=== PATIENT | female | born 1980 | race Caucasian/White ===

== ENCOUNTER 2024-10-08 21:29 | Emergency (ER) | payer OTHER, SELFPAY ==
[2024-10-08 21:46] VITALS: BP 156/79; PULSE 105; RESP 18; TEMP 36.8; O2SAT 92; BMI 54.8
[2024-10-08 23:37] VITALS: PULSE 104; O2SAT 91
[2024-10-08 23:39] VITALS: BP 167/90; PULSE 107; O2SAT 90
[2024-10-08 23:40] VITALS: PULSE 110; O2SAT 91
[2024-10-09 00:01] VITALS: BP 151/75
[2024-10-09 00:31] VITALS: BP 139/63
[2024-10-09 00:41] LABS: Add Manual Diff / Slide Review NO; Basophils Absolute Auto 100 /uL (0-100); Basophils Percent Auto 0.6 % (0-2); Eosinophils Absolute Auto 100 /uL (0-450); Eosinophils Percent Auto 1.3 % (2-4); Hematocrit 55.7 % (36-46); Hemoglobin 17.3 g/dL (12.0-16.0); Lymphocytes Absolute Auto 1200 /uL (1100-4500); Mean Corpuscular HGB Conc 31.1 % (30-36); Mean Corpuscular Volume 80.4 fL (80-100); Monocytes Absolute Auto 500 /uL (0-900); Neutrophils Absolute Auto 8500 /uL (1500-7000); Neutrophils Percent Auto 81.1 % (50-75); Platelet Count 246 X10^3/uL (150-400); Red Blood Cell Count 6.93 X10^6/uL (4.0-5.2); Red Cell Distribution Width 21.5 % (11.6-14.8); White Blood Cell Count 10.4 X10^3/uL (4.5-11.0)
--- NOTE | 2024-10-09 00:41 | ED.WOUNDLAC ---
HPI - Wound/Laceration General Chief Complaint: Wound/Laceration Stated Complaint: Poss Infected wound on Lt Foot Time Seen by Provider: 10/09/24 00:04 Source: patient Mode of arrival: Wheelchair History of Present Illness HPI narrative: 44-year-old female with history of diabetes status post amputation of all left foot toes, recently moved back from [place] to home [facility], not yet re-established with the primary care provider, had [facility] care in [place] who signed off care, seemed to have concerns about the way the stump looked. Now with recent days increasing redness to the stump incision, with some drainage. No fevers or chills. Some redness to the adjacent foot area. Related Data Previous Rx's ?Medication ?Instructions ?Recorded VIT#96/FERROUS FUM/FA 1 tab PO QDAY ##90 08/14/12 ( Vitamin) clindamycin HCl 300 mg capsule 300 mg PO Q6H Dental infection 10 10/09/24 days #40 caps levofloxacin 750 mg tablet 750 mg PO Q24H #10 tabs 10/09/24 Allergies Allergy/AdvReac Type Severity Reaction Status Date / Time Penicillins Allergy Intermediate Hives Verified 10/08/24 21:47 prednisone Allergy Intermediate Dizziness Verified 10/08/24 21:47 metformin AdvReac Intermediate Verified 10/08/24 21:48 Patient History Social History Smoking Status: Current every day smoker Smoking Status: Current every day smoker tobacco type: cigarettes Exam Narrative Exam Narrative: GENERAL: Well-developed patient, in mild distress. HEAD: Atraumatic. Normocephalic. EYES: Pupils equal round and reactive. Extraocular motions intact. No scleral icterus. No injection or drainage. ENT: Nose without bleeding, purulent drainage. Throat without erythema, tonsillar hypertrophy or exudate. Airway patent. NECK: Trachea midline. Non tender CARDIOVASCULAR: Regular rate and rhythm without murmurs, gallops, or rubs. RESPIRATORY: Clear to auscultation. Breath sounds equal bilaterally. No wheezes, rales, or rhonchi. GASTROINTESTINAL: Abdomen soft, non-tender, nondistended. EXTREMITIES: Lateral foot status post amputation of all 5 toes, left foot stump wound with slight distal opening and white yellow fluid. No crepitance. Some redness and swelling to the distal remainder foot to a proximally ankle level. No lymphangitic streaking. BACK: Nontender without deformity or crepitance. No flank tenderness. NEURO: AOx3. Motor functions grossly nonfocal. SKIN: No rash or erythema of visible areas Initial Vital Signs Initial Vital Signs: Vital Signs Temperature 98.2 F 10/08/24 21:46 Pulse Rate 105 H 10/08/24 21:46 Respiratory Rate 18 10/08/24 21:46 Blood Pressure 156/79 H 10/08/24 21:46 Pulse Oximetry 92 10/08/24 21:46 Oxygen Delivery Method Room Air 10/08/24 21:46 Course Orders Ordered: ED Orders 10/08/24 22:00 Consult to [facility] [place] - [employer] Stat 10/09/24 00:01 CBC Auto Diff [Complete Blood Count AUTO DIFF] Stat CMP [Comprehensive Metabolic Panel] Stat CRP [C-Reactive Protein Quant] Stat ESR [Erythrocyte Sedimentation Rate] Stat Hemoglobin A1C% w Est Avg Glu Stat Lactate (Lactic Acid) Stat 10/09/24 00:09 Wound Culture and Gram Stain Stat 10/09/24 00:56 XR foot LT min 3V Stat 10/09/24 01:10 CT LE LT w con Stat 10/09/24 01:35 Blood Culture Stat Discontinued Medications Vancomycin HCl 2,000 mg/ (Sodium Chloride) 500 mls @ 250 mls/hr IV NOW ONE Stop: 10/09/24 00:56 Last Admin: 10/09/24 01:42 Dose: 250 mls/hr Documented By: EDUARDA Piperacillin Sod/Tazobactam (Sod 4.5 gm/ Sodium Chloride) 100 mls @ 200 mls/hr IV NOW ONE Stop: 10/09/24 03:02 Levofloxacin (Levofloxacin 250 Mg Tablet) 750 mg PO NOW ONE Stop: 10/09/24 04:42 Last Admin: 10/09/24 04:58 Dose: 750 mg Documented By: JOVAN Vital Signs Vital signs: Vital Signs - 8 hr 10/08/24 23:37 10/08/24 23:39 10/08/24 23:39 Pulse Rate 104 H 107 H Blood Pressure 167/90 H Pulse Oximetry 91 90 L 10/08/24 23:40 10/09/24 00:01 10/09/24 00:31 Pulse Rate 110 H Blood Pressure 151/75 H 139/63 Pulse Oximetry 91 10/09/24 05:04 10/09/24 05:04 Pulse Rate 94 H Blood Pressure 127/61 Pulse Oximetry 85 L MDM - Wound/Laceration Lab Data Attestation: I reviewed the patient's lab results. Lab results narrative: White blood cell count 98048, hemoglobin 17.3, platelets adequate. Glucose 138. BUN 8 with creatinine 0.44. Serum CO2 34. Electrolytes unremarkable. Liver functions normal. Lactate 1.4 normal. 10/09/24 00:01 10/09/24 00:01 Labs: Lab Results 10/09/24 Range/Units 00:01 WBC 10.4 (4.5-11.0) X10^3/uL RBC 6.93 H (4.0-5.2) X10^6/uL Hgb 17.3 H (12.0-16.0) g/dL Hct 55.7 H (36-46) % MCV 80.4 (80-100) fL MCH 25.0 L (26-34) PG MCHC 31.1 (30-36) % RDW 21.5 H (11.6-14.8) % Plt Count 246 (150-400) X10^3/uL Neut % (Auto) 81.1 H (50-75) % Lymph % (Auto) 12.0 L (25-40) % [place] % (Auto) 5.0 (3-14) % Eos % (Auto) 1.3 L (2-4) % Baso % (Auto) 0.6 (0-2) % Neut # (Auto) 8500 H (0397-3479) /uL Lymph # (Auto) 1200 (6084-7231) /uL [place] # (Auto) 500 (0-900) /uL Eos # (Auto) 100 (0-450) /uL Baso # (Auto) 100 (0-100) /uL Platelet Estimate Adequate on smear RBC Morphology See below Anisocytosis 1+ H Microcytosis 1+ H ESR 2 (0-20) MM/HR Sodium 138 (137-145) mmol/L Potassium 4.1 (3.4-5.1) mmol/L Chloride 98 (98-107) mmol/L Carbon Dioxide 34 H (22-32) mmol/L BUN 8 (7-17) mg/dL Creatinine 0.44 L (0.52-1.04) mg/dL Estimated GFR > 60 (>60) mL/min BUN/Creatinine Ratio 18.2 (6-22) Glucose 138 H (70-99) mg/dL Hemoglobin A1c 7.5 H (4.0-6.0) % Lactate 1.4 (0.7-2.1) mmol/L Calcium 9.0 (8.4-10.2) mg/dL Total Bilirubin 0.8 (0.2-1.3) mg/dL AST 24 (14-36) IU/L ALT 12 (<35) IU/L Alkaline Phosphatase 109 (38-126) U/L C-Reactive Protein 0.9 (<1.0) mg/dL Total Protein 8.1 (6.3-8.2) g/dL Albumin 4.3 (3.5-5.0) g/dL Globulin 3.8 (1.7-4.1) g/dL Albumin/Globulin Ratio 1.1 (1.0-2.8) Imaging Data X-ray left foot/stump: Radiologist's Impression: Close Foot X-Ray (Signed) Neha Porras - 10/09/24 [place] [address] XRay Report Signed Patient: Norma Taveras MR#: [id number] : 1980 Acct:[id number] Age/Sex: 44 / F Date of Service: 10/09/24 Loc: ED Accession Number: [id number] Procedure: XR foot LT min 3V Ordering Provider: Ziggy Ireland MD PROCEDURE: XR FOOT LT MIN 3V INDICATIONS: infected post amputation foot TECHNIQUE: 1 views of the foot were acquired. COMPARISON: None. FINDINGS: Bones: Amputation of digits through 5 distal to the midportion the metatarsals. No erosions. Soft tissues: No tibiotalar joint effusion. Achilles tendon appears normal. Diffuse soft tissue edema in areas ulceration. IMPRESSION: Postsurgical changes. No visualized osteomyelitis. Dictated by: Neha Porras M.D. on 10/09/2024 at 1:26 Approved by: Neha Porras M.D. on 10/09/2024 at 1:27 MDM Narrative Medical decision making narrative: 44-year-old female with history of diabetes, status post prior left toes amputation, recently moved from [place] to [facility], has draining wound from stump site last couple of days, with redness to the foot. Concern for infection. Afebrile, sirs screen negative. Labs sent. Screening x-ray left foot/stump pending. Wound culture from scant drainage sent by nursing. IV vancomycin, IV Zosyn. X-ray shows postoperative changes left foot, no obvious osteomyelitis. See radiology report. Lab data: White blood cell count 64146, hemoglobin 17.3, platelets adequate. Glucose 138. BUN 8 with creatinine 0.44. Serum CO2 34. Electrolytes unremarkable. Liver functions normal. Lactate 1.4 normal. ESR2. CRP <0.9 CT left lower extremity with contrast. Impressions: ?Postsurgical findings of amputations of the bases of the metatarsals with extensive subcutaneous inflammatory changes throughout and ankle and foot compatible with cellulitis. No fracture or focal drainable collection is seen.? No mention of osteomyelitis changes. See radiology report. No drainable fluid on CT imaging, no gross osteomyelitis changes. Admit for cellulitis and draining wound, history of diabetes. IV vancomycin and Zosyn given. Will contact hospitalist. 0445, awaiting call back from hospitalist, but now patient sedating so she wants to be discharged home, despite urging her to stay for inpatient IV antibiotics. She is preferring to leave against medical advice. Expresses interested in continued oral antibiotic therapy and wound care clinic in follow up. Had IV vancomycin. History of penicillin allergy noted. Zosyn dose canceled. We will give oral Levaquin. Patient now does not want to be admitted, we would like a trial of oral antibiotics and follow up with wound care clinic. She will leave against medical advice. We will send prescription for oral clindamycin and oral Levaquin. Discharged home with family. Advised to follow up with wound care clinic. Given phone number information to establish with local primary care provider. Return precautions discussed. She left the emergency department against medical advice. Discharge Plan Departure Patient Disposition: Left Against Medical Advice Clinical Impression: Cellulitis of left foot, History of diabetes mellitus, Morbid obesity, Left against medical advice Activity Restrictions/Additional Instructions: History of diabetes, prior amputations of left foot toes, now with draining wound, having moved from home state of [place] back to [facility], yet to establish with local primary care provider. X-ray without obvious bony infection. Labs sent. CT foot without fluid collection drainable. IV vancomycin antibiotic given. Wound culture was sent prior to antibiotics. Advised to be admitted for further IV antibiotics. History of penicillin allergy. Additional antibiotic oral Levaquin/levofloxacin given. Further antibiotics as an outpatient though not ideal given you are leaving against medical advice, as medical advice was to be admitted for IV antibiotic therapy. We will give prescriptions for oral antibiotics for you to try. Prescription for oral clindamycin antibiotic, and oral levofloxacin antibiotic sent to your pharmacy. Contact information provided for local wound care clinic. Call [phone]. Also consider calling for to establish with local care provider, at number [phone]. Be aware leaving the department against medical advice we will result in lack of IV antibiotics, which could lead to worsening wound infection, spread of infection, increased risk of further amputation, development of sepsis syndrome, and theoretically even . You stated that you wanted to go home to take care of things, and seemed to prefer trial of oral antibiotics and wound care clinic. Call wound care clinic later today. Be aware also you can return to this emergency department for any change worsening symptoms or any concerns at any time. Prescriptions: New levofloxacin 750 mg tablet 750 mg PO Q24H Qty: 10 0RF clindamycin HCl 300 mg capsule 300 mg PO Q6H 10 Days Qty: 40 0RF No Action VIT#96/FERROUS FUM/FA ( Vitamin) 1 tab PO QDAY Qty: 90 0RF Stand Alone Forms: Patient Portal/API, Against Med. Advice (Burundian)
[2024-10-09 00:42] LABS: Alanine Aminotransferase 12 IU/L (<35); Albumin 4.3 g/dL (3.5-5.0); Albumin Globulin Ratio 1.1 (1.0-2.8); Alkaline Phosphatase 109 U/L (38-126); Aspartate Aminotransferase 24 IU/L (14-36); BUN Creatinine Ratio 18.2 (6-22); Bilirubin Total 0.8 mg/dL (0.2-1.3); Blood Urea Nitrogen 8 mg/dL (7-17); Carbon Dioxide 34 mmol/L (22-32); Chloride 98 mmol/L (98-107); Estimated Glomerular Filt Rate > 60 mL/min (>60); Globulin 3.8 g/dL (1.7-4.1); Glucose 138 mg/dL (70-99); HEMOLYSIS 30 (0-50); Lactate (Lactic Acid) 1.4 mmol/L (0.7-2.1); Potassium 4.1 mmol/L (3.4-5.1); Sodium 138 mmol/L (137-145); Total Protein 8.1 g/dL (6.3-8.2)
--- NOTE | 2024-10-09 00:56 | DI.RAD.S_ITS ---
PROCEDURE: XR FOOT LT MIN 3V INDICATIONS: infected post amputation foot TECHNIQUE: 1 views of the foot were acquired. COMPARISON: None. FINDINGS: Bones: Amputation of digits through 5 distal to the midportion the metatarsals. No erosions. Soft tissues: No tibiotalar joint effusion. Achilles tendon appears normal. Diffuse soft tissue edema in areas ulceration. IMPRESSION: Postsurgical changes. No visualized osteomyelitis. Dictated by: Neha Porras M.D. on 10/09/2024 at 1:26 Approved by: Neha Porras M.D. on 10/09/2024 at 1:27
--- NOTE | 2024-10-09 01:10 | DI.CT.S_ITS ---
PROCEDURE: CT LE LT W CON INDICATIONS: left foot, stump infected, eval for drainable abscess TECHNIQUE: After the administration of intravenous contrast, 3 mm axial sections acquired of the left ankle/foot, with coronal and sagittal reformats. For radiation dose reduction, the following was used: automated exposure control, adjustment of mA and/or kV according to patient size. COMPARISON: [facility], CR, XR FOOT LT MIN 3V, 10/09/2024, 1:03. FINDINGS: Image quality: Excellent. Bones: Postsurgical changes are seen from transmetatarsal amputation of the forefoot. No acute osseous erosion is seen. There is disuse osteopenia. Soft tissues: Prominent subcutaneous edema is seen throughout the distal aspect of the foot adjacent to the surgical site and extending into the ankle and lower leg. No soft tissue gas. No peripherally enhancing fluid collection is seen. The tendons, ligaments, and articular cartilages are not well evaluated with CT. The visualized musculature demonstrates normal in overall bulk. IMPRESSION: 1. Postsurgical changes from prior transmetatarsal amputation of the forefoot. 2. Subcutaneous edema is seen at the surgical site extending into the ankle and included lower leg, suspicious for cellulitis in the setting of presumed infection. No drainable abscess. No soft tissue gas. No signs of fasciitis or osteomyelitis. There is no significant discrepancy when compared to the overnight preliminary report. Approved by: Gabriel Thomas M.D. on 10/09/2024 at 7:58
[2024-10-09 01:11] LABS: Anisocytosis 1+; Microcytosis 1+; Platelet Estimate Adequate on smear
[2024-10-09 01:32] LABS: Erythrocyte Sedimentation Rate 2 MM/HR (0-20)
[2024-10-09] MEDS: VANCOMYCIN 2,000 MG in SODIUM CHLORIDE 0.9% 500 ML 250 MG IV (01:42)
[2024-10-09 02:15] LABS: C-Reactive Protein Quant 0.9 mg/dL (<1.0)
[2024-10-09 04:39] LABS: Hemoglobin A1C% w Est Avg Glu 7.5 % (4.0-6.0)
[2024-10-09] MEDS: levoFLOXacin 250 MG TABLET 750 MG PO (04:58)
[2024-10-09 05:04] VITALS: BP 127/61; PULSE 94; O2SAT 85
--- NOTE | 2024-10-20 10:50 | PC.NURSE ---
late entry per RN 10-09 0142 dose of vancomycin was completed at 0400.
== END 2024-10-09 05:20 | disposition left against medical advice (07) ==
PROVIDERS: Emergency Provider Emergency Medicine; Family Provider Obstetrics & Gynecology
DX: L03.116 Cellulitis of left lower limb (principal); E11.9 Type 2 diabetes mellitus without complications; E66.01 Morbid (severe) obesity due to excess calories; B95.61 Methicillin susceptible Staphylococcus aureus infection as the cause of diseases classified elsewhere; F17.210 Nicotine dependence, cigarettes, uncomplicated; Z68.43 Body mass index [BMI] 50.0-59.9, adult; Z89.422 Acquired absence of other left toe(s); Z89.412 Acquired absence of left great toe; Z88.0 Allergy status to penicillin
CPT/HCPCS: 36415; 73630; 73701; 80053; 83036; 83605; 85025; 85651; 86140; 87040; 87070; 87077; 87147; 87186; 87205; 96365; 99284; Q9967

== ENCOUNTER → 2024-10-13 10:03 | Outpatient (CLI) | payer OTHER, SELFPAY | PROVIDERS: Family Provider Obstetrics & Gynecology; Referring Provider Emergency Medicine; Visit Provider Surgery | DX: E11.621 Type 2 diabetes mellitus with foot ulcer (principal); E11.42 Type 2 diabetes mellitus with diabetic polyneuropathy; L97.522 Non-pressure chronic ulcer of other part of left foot with fat layer exposed; I73.9 Peripheral vascular disease, unspecified; E66.9 Obesity, unspecified; Z68.43 Body mass index [BMI] 50.0-59.9, adult; E78.00 Pure hypercholesterolemia, unspecified; F41.1 Generalized anxiety disorder; M79.7 Fibromyalgia | CPT/HCPCS: 11042; 99203; 99214 ==

== ENCOUNTER → 2024-10-20 11:23 | Outpatient (CLI) | payer OTHER, SELFPAY | PROVIDERS: Family Provider Obstetrics & Gynecology; Visit Provider Surgery | DX: E11.621 Type 2 diabetes mellitus with foot ulcer (principal); E11.42 Type 2 diabetes mellitus with diabetic polyneuropathy; L97.522 Non-pressure chronic ulcer of other part of left foot with fat layer exposed; I73.9 Peripheral vascular disease, unspecified; Z79.01 Long term (current) use of anticoagulants | CPT/HCPCS: 11042 ==

== ENCOUNTER → 2024-10-28 10:35 | Outpatient (CLI) | payer OTHER, SELFPAY | PROVIDERS: Family Provider Obstetrics & Gynecology; Visit Provider Nurse Practitioner Family | DX: E11.621 Type 2 diabetes mellitus with foot ulcer (principal); E11.42 Type 2 diabetes mellitus with diabetic polyneuropathy; L97.522 Non-pressure chronic ulcer of other part of left foot with fat layer exposed; I73.9 Peripheral vascular disease, unspecified; R60.0 Localized edema; Z79.01 Long term (current) use of anticoagulants; E66.9 Obesity, unspecified; Z68.43 Body mass index [BMI] 50.0-59.9, adult | CPT/HCPCS: 11042; 99213 ==

== ENCOUNTER → 2025-01-08 11:15 | Outpatient (CLI) | payer OTHER, SELFPAY | LOC: WC 11:16 | PROVIDERS: Family Provider Obstetrics & Gynecology; Visit Provider Physician Assistant | DX: E11.621 Type 2 diabetes mellitus with foot ulcer (principal); L97.522 Non-pressure chronic ulcer of other part of left foot with fat layer exposed; E11.42 Type 2 diabetes mellitus with diabetic polyneuropathy; I73.9 Peripheral vascular disease, unspecified | CPT/HCPCS: 11042; 99213; 99214 ==

== ENCOUNTER → 2025-01-18 12:09 | Outpatient (CLI) | payer OTHER, SELFPAY | PROVIDERS: Family Provider Obstetrics & Gynecology; PCP Nurse Practitioner Family; Referring Provider Emergency Medicine; Visit Provider Surgery | DX: E11.621 Type 2 diabetes mellitus with foot ulcer (principal); L97.522 Non-pressure chronic ulcer of other part of left foot with fat layer exposed; I73.9 Peripheral vascular disease, unspecified; E11.42 Type 2 diabetes mellitus with diabetic polyneuropathy; Z89.432 Acquired absence of left foot; F17.200 Nicotine dependence, unspecified, uncomplicated; Z79.01 Long term (current) use of anticoagulants | CPT/HCPCS: 11042; 97602 ==

== ENCOUNTER → 2025-01-27 16:32 | Outpatient (CLI) | payer OTHER, SELFPAY | LOC: WC 16:32 | PROVIDERS: Family Provider Obstetrics & Gynecology; PCP Nurse Practitioner Family; Referring Provider Nurse Practitioner Family; Visit Provider Surgery | DX: E11.621 Type 2 diabetes mellitus with foot ulcer (principal); L97.522 Non-pressure chronic ulcer of other part of left foot with fat layer exposed; E11.42 Type 2 diabetes mellitus with diabetic polyneuropathy; I73.9 Peripheral vascular disease, unspecified; Z79.01 Long term (current) use of anticoagulants; F17.200 Nicotine dependence, unspecified, uncomplicated | CPT/HCPCS: 11042; 97597 ==

== ENCOUNTER → 2025-02-03 14:47 | Outpatient (CLI) | payer OTHER, SELFPAY | LOC: WC 14:48 | PROVIDERS: Family Provider Obstetrics & Gynecology; PCP Nurse Practitioner Family; Referring Provider Nurse Practitioner Family; Visit Provider Surgery | DX: E11.621 Type 2 diabetes mellitus with foot ulcer (principal); L97.522 Non-pressure chronic ulcer of other part of left foot with fat layer exposed; E11.42 Type 2 diabetes mellitus with diabetic polyneuropathy; I73.9 Peripheral vascular disease, unspecified; Z89.422 Acquired absence of other left toe(s) | CPT/HCPCS: 11042; 99213 ==

== ENCOUNTER → 2025-02-10 14:04 | Outpatient (CLI) | payer OTHER, SELFPAY ==
[2025-02-10 16:02] LABS: Add Manual Diff / Slide Review NO; Hematocrit 42.0 % (36-46); Hemoglobin 13.6 g/dL (12.0-16.0); Lymphocytes Absolute Auto 2100 /uL (1100-4500); Mean Corpuscular HGB Conc 32.4 % (30-36); Mean Corpuscular Hemoglobin 27.4 PG (26-34); Mean Corpuscular Volume 84.5 fL (80-100); Platelet Count 277 X10^3/uL (150-400)
[2025-02-10 16:31] LABS: Alanine Aminotransferase 9 IU/L (<35); Albumin 4.1 g/dL (3.5-5.0); Albumin Globulin Ratio 1.4 (1.0-2.8); Alkaline Phosphatase 107 U/L (38-126); Blood Urea Nitrogen 12 mg/dL (7-17); Calcium 9.1 mg/dL (8.4-10.2); Carbon Dioxide 28 mmol/L (22-32); Chloride 100 mmol/L (98-107); Cholesterol 112 mg/dL (140-199); Estimated Glomerular Filt Rate > 60 mL/min (>60); Globulin 3.0 g/dL (1.7-4.1); Glucose 134 mg/dL (70-99); HDL Cholesterol 38 mg/dL (40-60); HEMOLYSIS < 15 (0-50); Potassium 4.5 mmol/L (3.4-5.1); Sodium 137 mmol/L (137-145); Total Protein 7.1 g/dL (6.3-8.2); Triglycerides 82 mg/dL (35-150)
[2025-02-10 16:32] LABS: Hemoglobin A1C% w Est Avg Glu 7.0 % (4.0-6.0)
[2025-02-10 16:51] LABS: Vitamin D 25 Hydroxy (D3) 27.5 ng/mL (30.0-100.0)
[2025-02-10 17:06] LABS: TSH w/ Reflex to FT4 1.71 uIU/mL (0.47-4.68)
== END ==
PROVIDERS: PCP Nurse Practitioner Family; Referring Provider Nurse Practitioner Family; Visit Provider Nurse Practitioner Family
DX: E11.51 Type 2 diabetes mellitus with diabetic peripheral angiopathy without gangrene (principal); E11.621 Type 2 diabetes mellitus with foot ulcer; L97.422 Non-pressure chronic ulcer of left heel and midfoot with fat layer exposed; E11.40 Type 2 diabetes mellitus with diabetic neuropathy, unspecified; Z13.220 Encounter for screening for lipoid disorders; I70.209 Unspecified atherosclerosis of native arteries of extremities, unspecified extremity; T87.89 Other complications of amputation stump; J44.9 Chronic obstructive pulmonary disease, unspecified; R26.2 Difficulty in walking, not elsewhere classified; M25.559 Pain in unspecified hip; E66.9 Obesity, unspecified; Z68.43 Body mass index [BMI] 50.0-59.9, adult; Z79.01 Long term (current) use of anticoagulants; Z89.432 Acquired absence of left foot; Z86.39 Personal history of other endocrine, nutritional and metabolic disease; Z95.820 Peripheral vascular angioplasty status with implants and grafts
CPT/HCPCS: 11042; 36415; 80053; 80061; 82306; 83036; 84443; 85025

== ENCOUNTER → 2025-02-10 14:42 | Outpatient (CLI) | payer OTHER, SELFPAY | PROVIDERS: PCP Nurse Practitioner Family; Referring Provider Nurse Practitioner Family; Visit Provider Surgery | DX: E11.621 Type 2 diabetes mellitus with foot ulcer (principal); L97.422 Non-pressure chronic ulcer of left heel and midfoot with fat layer exposed; T87.89 Other complications of amputation stump; Z89.432 Acquired absence of left foot; E11.40 Type 2 diabetes mellitus with diabetic neuropathy, unspecified; E11.51 Type 2 diabetes mellitus with diabetic peripheral angiopathy without gangrene; J44.9 Chronic obstructive pulmonary disease, unspecified; E66.9 Obesity, unspecified; Z68.43 Body mass index [BMI] 50.0-59.9, adult; Z95.820 Peripheral vascular angioplasty status with implants and grafts; R26.2 Difficulty in walking, not elsewhere classified; M25.559 Pain in unspecified hip; Z79.01 Long term (current) use of anticoagulants | CPT/HCPCS: 11042 ==

== ENCOUNTER → 2025-02-16 13:40 | Outpatient (CLI) | payer OTHER, SELFPAY | PROVIDERS: PCP Nurse Practitioner Family; Referring Provider Nurse Practitioner Family; Visit Provider Surgery | DX: E11.621 Type 2 diabetes mellitus with foot ulcer (principal); L97.522 Non-pressure chronic ulcer of other part of left foot with fat layer exposed; E11.40 Type 2 diabetes mellitus with diabetic neuropathy, unspecified; E11.51 Type 2 diabetes mellitus with diabetic peripheral angiopathy without gangrene; F17.210 Nicotine dependence, cigarettes, uncomplicated; E66.9 Obesity, unspecified; Z68.43 Body mass index [BMI] 50.0-59.9, adult; Z89.432 Acquired absence of left foot; Z98.62 Peripheral vascular angioplasty status; Z79.01 Long term (current) use of anticoagulants | CPT/HCPCS: 11042 ==

== ENCOUNTER → 2025-02-19 06:41 | Outpatient (CLI) | payer OTHER, SELFPAY ==
--- NOTE | 2025-02-19 06:42 | DI.US.S_ITS ---
PROCEDURE: US ARTERIAL DUPLEX LE LT
== END ==
LOC: US 06:41
PROVIDERS: PCP Nurse Practitioner Family; Referring Provider Surgery; Visit Provider Surgery
DX: E11.621 Type 2 diabetes mellitus with foot ulcer (principal); L97.522 Non-pressure chronic ulcer of other part of left foot with fat layer exposed; I70.202 Unspecified atherosclerosis of native arteries of extremities, left leg
CPT/HCPCS: 93926

== ENCOUNTER → 2025-02-24 11:21 | Outpatient (CLI) | payer OTHER, SELFPAY | PROVIDERS: PCP Nurse Practitioner Family; Referring Provider Nurse Practitioner Family; Visit Provider Surgery | DX: E11.621 Type 2 diabetes mellitus with foot ulcer (principal); L97.522 Non-pressure chronic ulcer of other part of left foot with fat layer exposed; E11.42 Type 2 diabetes mellitus with diabetic polyneuropathy; I73.9 Peripheral vascular disease, unspecified | CPT/HCPCS: 11042 ==

== ENCOUNTER → 2025-02-24 11:40 | Outpatient (CLI) | payer OTHER, SELFPAY | PROVIDERS: PCP Nurse Practitioner Family; Referring Provider Nurse Practitioner Family; Visit Provider Nurse Practitioner Family | DX: M54.9 Dorsalgia, unspecified (principal); R21 Rash and other nonspecific skin eruption; R53.83 Other fatigue | CPT/HCPCS: 36415; 86038 ==

== ENCOUNTER → 2025-03-03 09:21 | Outpatient (CLI) | payer OTHER, SELFPAY ==
--- OUTSIDE RECORDS SUMMARY | 2025-03-05 14:20 | XMS_ITS | Clinical Summary ---
Author Organization [facility] Address [facility] [address] Care Team Providers Care Deicer Inspector Electric Name Role Phone Unavailable Primary Care Provider Unavailabl e Encounters Date Type Department Care Team Description 02/15/2025 Order Store Management Trainee VASCULAR SURGERY - [place], [place] [address] [place] [address] Clementina Sanchez NP PAD (peripheral artery disease) (Primary Dx) from Last 3 Months Social History Tobacco Use Types Packs/Day Years Used Date Smoking Tobacco: Never Assessed Comments Unknown Sex and Gender Information Value Date Recorded Sex Assigned at Not on file Legal Sex Female 11:55 AM PST Gender Identity Not on file Sexual Orientation Not on file Plan of Treatment Upcoming Encounters Date Type Department Care Team (Late st Contact Info) Description 03/25/2025 4:00 PM PST Initial consult VASCULAR SURGERY [place], [place] [address] [place] [id number] Rosa Maria Ivy MD [address] [place] [address] Health Maintenance Due Date Last Done Comments CT Colonography 1978 Colonoscopy 1978 Colorectal Cancer Screening 1978 Disability Screening 1978 FIT-DNA (COLOGUARD) 1978 Hepatitis C Screening 1978 Sigmoidoscopy 1978 HIV Screening 1993 Lipid Panel (Cholesterol Screening) 1996 DTaP/Tdap/Td Vaccine (1 - Tdap) 1997 Pap Smear 1999 Cervical Cancer Screening 2008 HPV/COTEST 2008 Breast Cancer Screening 2018 FIT (FOBT) 2023 Drug, Alcohol, and Depressio n Screening 04/15/2024 SOGIE 04/15/2024 Covid-19 Vaccine (1 - 2023-2 5 season) 2024 Influenza Vaccine (#1) 2024 Zoster (1 of 2) 2028 RSV Vaccines (1 - 1-dose 75+ series) 2053 HPV Vaccine Aged Out No longer eligi ble based on patient's age to complete this topic Pneumococcal Ages 0-5 Years and At Risk Patients Ages 6-49 Years Aged Out No longer eligible based on patient's age to complete this topic Insurance [facility]
== END ==
LOC: WC 09:21
PROVIDERS: PCP Nurse Practitioner Family; Referring Provider Nurse Practitioner Family; Visit Provider Surgery
DX: E11.621 Type 2 diabetes mellitus with foot ulcer (principal); L97.522 Non-pressure chronic ulcer of other part of left foot with fat layer exposed; E11.42 Type 2 diabetes mellitus with diabetic polyneuropathy; I73.9 Peripheral vascular disease, unspecified
CPT/HCPCS: 11042; 99213

== ENCOUNTER → 2025-03-10 11:26 | Outpatient (CLI) | payer OTHER, SELFPAY | LOC: WC 11:27 | PROVIDERS: PCP Nurse Practitioner Family; Referring Provider Nurse Practitioner Family; Visit Provider Nurse Practitioner Family | DX: E11.621 Type 2 diabetes mellitus with foot ulcer (principal); L97.522 Non-pressure chronic ulcer of other part of left foot with fat layer exposed; E11.42 Type 2 diabetes mellitus with diabetic polyneuropathy; I73.9 Peripheral vascular disease, unspecified; F17.200 Nicotine dependence, unspecified, uncomplicated; Z79.01 Long term (current) use of anticoagulants | CPT/HCPCS: 11042; 99214 ==

== ENCOUNTER → 2025-03-17 10:40 | Outpatient (CLI) | payer OTHER, SELFPAY | PROVIDERS: PCP Nurse Practitioner Family; Referring Provider Nurse Practitioner Family; Visit Provider Surgery | DX: E11.621 Type 2 diabetes mellitus with foot ulcer (principal); L97.522 Non-pressure chronic ulcer of other part of left foot with fat layer exposed; E11.42 Type 2 diabetes mellitus with diabetic polyneuropathy; I73.9 Peripheral vascular disease, unspecified; Z79.01 Long term (current) use of anticoagulants | CPT/HCPCS: 11042 ==

== ENCOUNTER → 2025-03-17 10:55 | Outpatient (CLI) | payer OTHER, SELFPAY ==
--- NOTE | 2025-03-17 11:02 | DIAB.MNT ---
Initial Diabetes Medical Nutrition Therapy Assessment Name: Norma Rod Date: 03/17/25 Time: 0a Dx: Type II Diabetes Provider: Danile Norma presents for initial Dm visit, accompanied by her son/caregiver. Dx with T2 in 2008 PMH of gangrene foot in 10/2024 reported. 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 PMH of GDM with pregnancies. Reports 9 pregnancies total. Unclear how many she had GDm vs T2Dm vs no DM. Restarted liraglutide again on 03/06, then titrated to 1.2mg on 03/13. if eat with injection, less upset GI. Sees wound care 1x per week for left foot. Poor dentition, wants to see a dentist. States she aims for 15g CHo at snacks and <80g CHO at meals. Eye appt: overdue Feet: checks daily Diet Recall: Breakfast: nothing or Starbucks wrap with coffee +/- protein shake 11a-1p: salad OR leftovers OR protein shake OR lunch meat with cheese and crackers 530p: protein (chx or turkey) with veggies and +/- small potato 1030p: nothing or 3 dark chocolates OR cheese with crackers 30oz sf coffee 16oz x4 sf soda <16oz water 1-2 protein shakes Anthropometrics: Ht: 61 Wt: 286# 01/2025 Physical Activity: Limited mobility with LE wound and injury. States she needs a hip replacement and length of leg impacted, so she cannot walk. Self-Monitoring Blood Glucose: Checking FBG and sometimes later in the day. FBg often running 140-150mg/dl per report. Wants CGM. States insurance denied CGM. Has tried CGM in the past. Date Pre Post Pre Post Pre Post HS Diabetes Medications: 1.2mg liraglutide 13u glargine BID Pertinent Labs: hgA1c: 7% 01/2025 Past Medical History: (Last Updated 02/24/25 @ 16:29 by Clementina Sanchez, [facility]-) Anticoagulated Cigarette smoker COPD (chronic obstructive pulmonary disease) Heavy menstrual bleeding Morbid obesity with BMI of 50.0-59.9, adult Neuropathy PAD (peripheral artery disease) Nutrition Rx: Carbohydrates:Meal:30-45g Snack:15-30g Nutrition Diagnosis: - Nutrition and food related knowledge deficit r/t limited MNT/DSME aeb pt report and diet recall - Physical inactivity r/t physical barriers and stage of change aeb pt report Intervention: This participant was very receptive. Provided appropriate educational handouts. Discussed the following topics: Completed intake assessment. HgA1c reduction change and lifestyle changes Importance of self-monitoring, how often, and when to check. Troubleshooting for CGM access. RD messaged PCP workgroup. Pairing macronutrients and spreading out carbohydrates for better blood glucose management Recommended servings for carbohydrates at meals and snacks Reducing DM complication risk Created SMART goals for patient self-care and success. Goals: Protein shake each morning Download DexMojeek G7 dionisio for sample next visit Call for eye appt Look into dentist access Follow-up: TERRENCE CARRASCO follow-up in 3-4 weeks Rosa Solis RDN, [facility] Certified Diabetes Care and Hot Tar Roofer Helper P: [phone] Thank you for this referral
== END ==
PROVIDERS: PCP Nurse Practitioner Family; Referring Provider Nurse Practitioner Family
DX: E11.9 Type 2 diabetes mellitus without complications (principal); Z71.3 Dietary counseling and surveillance; Z79.4 Long term (current) use of insulin; Z79.85 Long-term (current) use of injectable non-insulin antidiabetic drugs
CPT/HCPCS: 97802

== ENCOUNTER → 2025-04-14 10:57 | Outpatient (CLI) | payer OTHER, SELFPAY | LOC: WC 11:01 | PROVIDERS: PCP Nurse Practitioner Family; Referring Provider Nurse Practitioner Family; Visit Provider Surgery | DX: E11.621 Type 2 diabetes mellitus with foot ulcer (principal); L97.422 Non-pressure chronic ulcer of left heel and midfoot with fat layer exposed; L98.8 Other specified disorders of the skin and subcutaneous tissue; E11.40 Type 2 diabetes mellitus with diabetic neuropathy, unspecified; E11.51 Type 2 diabetes mellitus with diabetic peripheral angiopathy without gangrene; Z89.432 Acquired absence of left foot; E66.9 Obesity, unspecified; Z68.43 Body mass index [BMI] 50.0-59.9, adult; J44.9 Chronic obstructive pulmonary disease, unspecified; Z95.820 Peripheral vascular angioplasty status with implants and grafts; R26.89 Other abnormalities of gait and mobility; Z79.01 Long term (current) use of anticoagulants; Z72.0 Tobacco use | CPT/HCPCS: 11042; 99213 ==